=== PATIENT | female | born 1970 | race Caucasian/White ===

== ENCOUNTER → 2017-02-08 | Outpatient (CLI) | payer OTHER ==
--- NOTE | 2017-02-08 13:11 | RADIOLOGY REPORT (SQ) ---
EXAM DESCRIPTION: L SPINE FLEX/EXT ONLY; SPINE SINGLE VIEW COMPLETED DATE/TIME: 02/08/2017 12:34 pm REASON FOR STUDY: LUMBAR RADICULOPATHY (FLEX/EXT); LUMBAR RADICULOPATHY (AP) COMPARISON: None. TECHNIQUE: AP, lateral flexion and extension radiographs of the spine. NUMBER OF VIEWS: Three views. LIMITATIONS: None. FINDINGS: Normal alignment, maintained throughout flexion and extension. No abnormal motion. OTHER: No other significant finding. IMPRESSION: NO RADIOGRAPHIC EVIDENCE OF ABNORMAL MOTION. TECHNICAL DOCUMENTATION: JOB ID: [id number] [email or web address]- All Rights Reserved
--- NOTE | 2017-02-08 13:11 | RADIOLOGY REPORT (SQ) ---
EXAM DESCRIPTION: L SPINE FLEX/EXT ONLY; SPINE SINGLE VIEW COMPLETED DATE/TIME: 02/08/2017 12:34 pm REASON FOR STUDY: LUMBAR RADICULOPATHY (FLEX/EXT); LUMBAR RADICULOPATHY (AP) COMPARISON: None. TECHNIQUE: AP, lateral flexion and extension radiographs of the spine. NUMBER OF VIEWS: Three views. LIMITATIONS: None. FINDINGS: Normal alignment, maintained throughout flexion and extension. No abnormal motion. OTHER: No other significant finding. IMPRESSION: NO RADIOGRAPHIC EVIDENCE OF ABNORMAL MOTION. TECHNICAL DOCUMENTATION: JOB ID: [id number] [email or web address]- All Rights Reserved
== END ==
LOC: RAD 11:45
PROVIDERS: ATTEND Specialist
DX: M54.16 Radiculopathy, lumbar region (principal)
CPT/HCPCS: 72020; 72120

== ENCOUNTER → 2019-03-19 | Outpatient (CLI) | payer OTHER ==
--- NOTE | 2019-03-19 15:23 | RADIOLOGY REPORT (SQ) ---
EXAM DESCRIPTION: MRI RT LOWER JOINT WITHOUT COMPLETED DATE/TIME: 03/19/2019 10:52 am REASON FOR STUDY: PAIN IN RIGHT KNEE (M25.561) M25.561 PAIN IN RIGHT KNEE COMPARISON: None. TECHNIQUE: Rightknee images acquired and stored on PACS. Multiplanar images include fat sensitive s equences as T1, water sensitive sequences as FST2 or STIR, cartilage sensitive sequences as FSPD, and gradient echo sequences. LIMITATIONS: None. FINDINGS: JOINT AND BURSAE: No effusion. BONE CORTEX AND MARROW: No alteration of signal to suggest marrow replacement. No worrisome bone lesi ons. No occult fracture. ACL: Mild degenerative signal. Major fiber bundles intact. PCL: Intact. MCL: Intact. No periligamentous edema or fluid. LCL: Intact. No periligamentous edema or fluid. MEDIAL MENISCUS: Degenerative signal posterior horn and root. LATERAL MENISCUS: No tears. No abnormal signal. MEDIAL COMPARTMENT: Cartilage preserved. No bone bruises or reactive marrow edema. No osteophytes. LATERAL COMPARTMENT: Cartilage preserved. No bone bruises or reactive marrow edema. No osteophytes. PATELLA: No chondromalacia. No subchondral cysts. Medial and lateral retinacula intact. EXTENSOR MECHANISM: Scar in the suprapatellar fat pad. SOFT TISSUES: Adjacent muscles and subcutaneous tissues normal. Normal flow void in popliteal artery and vein. OTHER: No other significant finding. IMPRESSION: 1. Scar in the suprapatellar fat pad may reflect impingement. 2. Degenerative signal in the medial meniscus. No tear suggested. 3. ACL signal is likely degenerative. No collateral ligament disruption. TECHNICAL DOCUMENTATION: JOB ID: [id number]- All Rights Reserved Reading location - IP/workstation name: [email or web address]
== END ==
LOC: RAD 09:59
PROVIDERS: ATTEND Orthopaedic Surgery
DX: M25.561 Pain in right knee (principal)

== ENCOUNTER 2019-04-16 06:48 | Day surgery (SDC) | payer OTHER ==
[2019-04-09 09:57] LABS: APPEARANCE,URINE CLEAR; BILIRUBIN,URINE NEGATIVE (NEGATIVE); COLOR,URINE YELLOW; GLUCOSE, URINE NEGATIVE (NEGATIVE); KETONES,URINE NEGATIVE (NEGATIVE); LEUKOCYTE ESTERASE,URINE NEGATIVE (NEGATIVE); NITRITE,URINE NEGATIVE (NEGATIVE); PROTEIN,URINE NEGATIVE (NEGATIVE); URINE SPECIFIC GRAVITY 1.008; UROBILINOGEN,URINE NEGATIVE mg/dL (<2.0)
[2019-04-09 10:13] LABS: HEMATOCRIT 49.4 % (36.0-47.0); HEMOGLOBIN 16.4 g/dL (12.0-15.5); MEAN CORPUSCULAR HEMOGLOBIN 29.5 pg (27.0-33.4); MEAN CORPUSCULAR HGB CONC 33.2 g/dL (32.0-36.0); MEAN CORPUSCULAR VOLUME 89 fl (80-97); PLATELET COUNT 253 10^3/uL (150-450); RED BLOOD COUNT 5.56 10^6/uL (3.72-5.28); RED CELL DISTRIBUTION WIDTH 13.9 % (11.5-14.0); WHITE BLOOD COUNT 5.9 10^3/uL (4.0-10.5)
[2019-04-09 10:46] LABS: ANION GAP 7 (5-19); BLOOD UREA NITROGEN 8 mg/dL (7-20); CALCIUM 9.2 mg/dL (8.4-10.2); CARBON DIOXIDE 31 mmol/L (22-30); CHLORIDE 101 mmol/L (98-107); GLUCOSE 78 mg/dL (75-110); POTASSIUM 4.2 mmol/L (3.6-5.0)
--- NOTE | 2019-04-09 11:23 | EKG REPORT ---
SEVERITY:- ABNORMAL ECG - SINUS RHYTHM CONSIDER LEFT VENTRICULAR HYPERTROPHY ANTERIOR Q WAVES, POSSIBLY DUE TO LVH BORDERLINE T ABNORMALITIES, INFERIOR LEADS : Confirmed by: Gasper Betancourt 09-Apr-2019 11:22:22
[~2019-04-16 06:48] MED LIST: CEFAZOLIN SODIUM 2 GM in DEXTROSE 5%-WATER 100 ML IV PRN; LACTATED RINGERS 1000 ML IV PRN
[2019-04-16] MEDS ORDERED: BUPIVACAINE HCL 0.5 % INJ/PF 30 ML SDV ONE (07:36)
[2019-04-16] MEDS ORDERED: LIDOCAINE 1%/EPINEPHRINE INJ 20 ML VIAL ONE (07:37)
[2019-04-16] MEDS ORDERED: FENTANYL CITRATE INJ/PF 100 MCG/2 ML AMPUL ONE ×2 (09:23→10:24)
[2019-04-16] MEDS ORDERED: ONDANSETRON HCL INJ/PF 4 MG/2 ML SDV ONE (09:24)
[2019-04-16] MEDS ORDERED: MIDAZOLAM 2 MG/2 ML INJ ONE (09:24)
[2019-04-16] MEDS ORDERED: PROPOFOL INJ 200 MG/20 ML VIAL IV ONE (09:24)
[2019-04-16] MEDS ORDERED: FENTANYL CITRATE INJ/PF 100 MCG/2 ML AMPUL IV PRN ×3 (09:45)
[2019-04-16] MEDS ORDERED: PROMETHAZINE HCL INJ 25 MG/1 ML VIAL IV PRN ×2 (09:45)
[2019-04-16] MEDS ORDERED: DIPHENHYDRAMINE HCL 50 MG/ML VIAL IV PRN (09:45)
[2019-04-16] MEDS ORDERED: MEPERIDINE HCL/PF INJ 25 MG/1 ML DISP.SYRIN IV PRN (09:45)
--- NOTE | 2019-04-16 10:10 | Discharge Summary ---
Discharge Summary (SDC) - Discharge Final Diagnosis: Right medial meniscal tear Date of Surgery: 04/16/19 Discharge Date: 04/16/19 Condition: Good Forms: ASU Anesthesia D/C Instruction, Discharge POC-Surgical Service Treatment or Instructions: Weightbearing as tolerated ambulation. Remove compressive wrap on Sunday. Underlying OpSite dressing can be left in place until you return to the office and you can shower once the compressive wrap is removed. Prescriptions: Hydrocodone/Acetaminophen [Vicodin 5-300 mg Tablet] 1 each PO Q6 PRN #40 tablet PRN Reason: Referrals: LOAN MAYFIELD MD [ACTIVE STAFF] - Discharge Diet: Regular Respiratory Treatments at Home: Deep Breathing/Coughing Discharge Activity: Balance Activity w/Rest, No tub bath Home Care Assistance: None Needed Report the Following to Your Physician Immediately: Shortness of Breath, Fever over 101 Degrees, Drainage-Foul Smelling
--- NOTE | 2019-04-16 10:12 | Operative Report ---
Operative Report DATE OF SURGERY: 04/16/19 PREOPERATIVE DIAGNOSIS: Right medial meniscal tear POSTOPERATIVE DIAGNOSIS: Right medial meniscal tear. Right femoral condyle chondral lesion. Intact ACL. Intact lateral meniscus. Grade 1 chondral malacia lateral compartment. Grade 1 chondral malacia the patellofemoral compartment OPERATION: Arthroscopic right partial medial meniscectomy and abrasion chondroplasty the medial femoral condyle SURGEON: LOAN MAYFIELD ANESTHESIA: LMAC ESTIMATED BLOOD LOSS: Minimal PROCEDURE: With the patient supine on the operative table the right lower extremities prepped and draped in a sterile fashion. The knee is insufflated with a combination of Marcaine, Xylocaine, and epinephrine. Subsequent medial lateral patella portals are created for the introduction of arthroscope and debridements mentation. The joint is examined in systematic fashion findings as above. Using a basket Yaya, mechanical shaver, electric frequency ablation probe a partial medial meniscectomy was performed from approximately 3:00 to 12:00 on the face of the dial. The mechanical shaver G-tube used to debride the chondral fibrillations over the medial femoral condyle which measures approximately 1-1/2 cm. A needle was then used to perform punctate perforations of the subchondral bone. The instrumentation was removed. The nylons used to reapproximate the portals. A sterile compressive dressing was applied and the patient's return to the PACU in satisfactory condition.
[2019-04-16] MEDS ORDERED: ACETAMINOPHEN 1,000 MG/100 ML RTUPB IV ONE (10:28)
[2019-04-16] MEDS ORDERED: KETOROLAC TROMETHAMINE INJ/PF 30 MG/1 ML SDV ONE (10:28)
[2019-04-16 13:07] VITALS: BP 118/76
== END 2019-04-16 12:15 | disposition home or self-care (01) ==
LOC: OROUT 06:48
PROVIDERS: ATTEND Orthopaedic Surgery
DX: M23.203 Derangement of unspecified medial meniscus due to old tear or injury, right knee (principal); M23.91 Unspecified internal derangement of right knee; E78.5 Hyperlipidemia, unspecified; I10 Essential (primary) hypertension; F17.210 Nicotine dependence, cigarettes, uncomplicated; K21.9 Gastro-esophageal reflux disease without esophagitis; E66.01 Morbid (severe) obesity due to excess calories; Z68.32 Body mass index [BMI] 32.0-32.9, adult; Z79.899 Other long term (current) drug therapy; Z79.51 Long term (current) use of inhaled steroids
CPT/HCPCS: 93005; 36415; 85027; 80048; 81001; 93010; 01400; 29881; 29879; J2250; J3490 ×2; J0690; J3010; J1885; J2405; J7060; J2704; J0131; 1400